=== PATIENT | male | born 1955 | race Caucasian/White ===

== ENCOUNTER 2023-01-10 12:41 | Inpatient (IN) ==
[2023-01-10] MEDS ORDERED: Lactated Ringers 1000 ml BAG 1,000 ML IV ONE ×4 (13:10→16:57)
[2023-01-10 13:39] LABS: ABS Basophils 0.1 10^3/ul (0-0.2); ABS Eosinophils 0.1 10^3/ul (0-0.6); ABS Lymphocytes 1.4 10^3/ul (1.0-4.8); ABS Monocytes 0.9 10^3/ul (0-0.8); ABS Neutrophils 12.1 10^3/ul (1.5-7.7); Eosinophil % 0.8 %; Hematocrit 36 % (42-52); Hemoglobin 11.5 g/dL (14.0-18.0); Lymphocyte % 9.6 %; Mean Corpuscular HGB Conc 32 g/dL (31-36); Mean Corpuscular Hemoglobin 29 pg (27-31); Mean Corpuscular Volume 89 fL (80-94); Mean Platelet Volume 6.7 fL (7.4-10.4); Platelet Count 233 10^3/uL (150-450); Red Blood Count 4.03 10^6 /uL (4.18-5.48); Red Cell Distribution Width 16 % (10-15); White Blood Count 14.5 10^3/uL (3.5-10.8)
[2023-01-10 13:45] LABS: INR 1.5 (0.88-1.18)
[2023-01-10] MEDS ORDERED: Piperacillin/Tazobac ADVAN 3.375 GM in NS 0.9% 100 ml BAG 100 ML IV ONE (13:53)
[2023-01-10] MEDS ORDERED: Vancomycin 1,250 MG in NS 0.9% 250 ml 250 ML IVPB ONE (14:00)
[2023-01-10] MEDS ORDERED: Iodixanol (CONTRAST) 320 MG/ML 100 ML SDV IV ONE (14:13)
[2023-01-10 14:33] LABS: Albumin 3.6 g/dL (3.2-5.2); Albumin/Globulin Ratio 1.7 (1-3); Calcium 8.8 mg/dL (8.6-10.3); Creatinine, Serum 1.2 mg/dL (0.67-1.17); Globulin 2.1 g/dL (2-4); Total Bilirubin 0.9 mg/dL (0.2-1.0); Total Protein 5.7 g/dL (6.4-8.9); eGFR CKD-EPI 67.1 (>60)
[2023-01-10 14:41] LABS: Potassium 5.3 mmol/L (3.5-5.0)
[2023-01-10] MEDS ORDERED: Norepinephrine 16MCG/ML BAGD5W 4,000 MCG/250 ML BAG IV SCH (15:00)
[2023-01-10 15:06] LABS: High Sensitivity Troponin 1 Hr 11 pg/mL (<20)
[2023-01-10 15:40] LABS: Urine Appearance Clear; Urine Bilirubin Negative (Negative); Urine Blood Negative (Negative); Urine Color Yellow; Urine Glucose Negative (Negative); Urine Ketones Negative (Negative); Urine Nitrite Negative (Negative); Urine Protein Negative (Negative); Urine Specific Gravity 1.014 (1.002-1.030); Urine Urobilinogen Negative (Negative)
[2023-01-10] MEDS ORDERED: cefTRIAXone 1 gm/50 mL D5W 1 GM/50 ML BAG IV SCH (17:00)
[2023-01-10 17:14] LABS: Magnesium 1.8 mg/dL (1.9-2.7)
[2023-01-10] MEDS ORDERED: Azithromycin 500 mg/250 ml NS 500 MG/250 ML BAG IVPB SCH (18:00)
[2023-01-10] MEDS ORDERED: Zosyn per Pharmacy NOTE FOLLOW UP SCH (18:00)
[2023-01-10] MEDS ORDERED: Albuterol HFA INHALER 8 gm MDI INH PRN (18:02)
[2023-01-10] MEDS ORDERED: Saline NASAL SPRAY 0.65% BTL BOTH NARES PRN (18:02)
[2023-01-10] MEDS ORDERED: Magnesium Sulfate 2 gm BAG 2 GM/50 ML BAG IVPB ONE (18:06)
[2023-01-10] MEDS: Enoxaparin 40 MG/0.4 ML SYR SUBCUT SCH (18:28)
[2023-01-10] MEDS ORDERED: Dextrose 50% Syringe 50 ml 25 GM/50 ML SYRINGE IV PUSH PRN (18:42)
[2023-01-10] MEDS ORDERED: ZOSYN 3.375 GM Q8H per EXTENDED INFUSION IV SCH (20:00)
[2023-01-10] MEDS ORDERED: Morphine ER 30 mg TAB ** extended release PO PRN (20:49)
[2023-01-10] MEDS: Polyethylene Glycol 3350 17 GM PACKET PO SCH (21:05)
[2023-01-10] MEDS: ZOSYN 3.375 GM Q8H per EXTENDED INFUSION IV SCH (21:15)
[2023-01-10] MEDS: Senna TAB 8.6 mg TAB PO SCH (21:53)
[2023-01-10 23:28] LABS: Calcium 8.5 mg/dL (8.6-10.3); Creatinine, Serum 0.95 mg/dL (0.67-1.17); Magnesium 2.2 mg/dL (1.9-2.7); Potassium 4.1 mmol/L (3.5-5.0); eGFR CKD-EPI 88.8 (>60)
[2023-01-11] MEDS: Morphine ER 30 mg TAB ** extended release PO SCH ×2 (04:03→14:51)
[2023-01-11] MEDS: ZOSYN 3.375 GM Q8H per EXTENDED INFUSION IV SCH ×2 (05:07→12:52)
[2023-01-11 06:35] LABS: ABS Eosinophils 0.2 10^3/ul (0-0.6); ABS Monocytes 0.6 10^3/ul (0-0.8); ABS Neutrophils 6.1 10^3/ul (1.5-7.7); Eosinophil % 2.1 %; Hematocrit 36 % (42-52); Hemoglobin 11.8 g/dL (14.0-18.0); Mean Corpuscular HGB Conc 33 g/dL (31-36); Mean Corpuscular Hemoglobin 29 pg (27-31); Mean Corpuscular Volume 89 fL (80-94); Mean Platelet Volume 6.6 fL (7.4-10.4); Platelet Count 170 10^3/uL (150-450); Red Blood Count 4.01 10^6 /uL (4.18-5.48); Red Cell Distribution Width 16 % (10-15)
[2023-01-11 07:08] LABS: Calcium 8.5 mg/dL (8.6-10.3); Creatinine, Serum 0.84 mg/dL (0.67-1.17); Potassium 4.3 mmol/L (3.5-5.0); eGFR CKD-EPI 96.8 (>60)
[2023-01-11] MEDS: Tiotropium Brom/Olodaterol MDI INH SCH (07:56)
[2023-01-11] MEDS: Senna TAB 8.6 mg TAB PO SCH ×2 (09:01→20:22)
[2023-01-11] MEDS: Polyethylene Glycol 3350 17 GM PACKET PO SCH ×2 (09:02→20:22)
[2023-01-11] MEDS: Enoxaparin 40 MG/0.4 ML SYR SUBCUT SCH (17:13)
[2023-01-12] MEDS: Morphine ER 30 mg TAB ** extended release PO SCH ×2 (02:49→15:02)
[2023-01-12] MEDS ORDERED: Morphine 2 MG/ML SYRINGE IV ONE (06:15)
[2023-01-12] MEDS: Tiotropium Brom/Olodaterol MDI INH SCH (07:49)
[2023-01-12 08:19] LABS: ABS Eosinophils 0.1 10^3/ul (0-0.6); ABS Lymphocytes 1.2 10^3/ul (1.0-4.8); ABS Monocytes 0.4 10^3/ul (0-0.8); ABS Neutrophils 4.4 10^3/ul (1.5-7.7); Eosinophil % 2.4 %; Hematocrit 35 % (42-52); Hemoglobin 12.2 g/dL (14.0-18.0); Mean Corpuscular HGB Conc 35 g/dL (31-36); Mean Corpuscular Hemoglobin 30 pg (27-31); Mean Corpuscular Volume 87 fL (80-94); Mean Platelet Volume 6.6 fL (7.4-10.4); Platelet Count 175 10^3/uL (150-450); Red Blood Count 4.05 10^6 /uL (4.18-5.48); Red Cell Distribution Width 16 % (10-15); White Blood Count 6.2 10^3/uL (3.5-10.8)
[2023-01-12] MEDS: Senna TAB 8.6 mg TAB PO SCH ×2 (10:15→23:12)
[2023-01-12 10:18] LABS: C Reactive Protein 129.42 mg/L (<8.01); Calcium 8.6 mg/dL (8.6-10.3); Creatinine, Serum 0.73 mg/dL (0.67-1.17)
[2023-01-12] MEDS: Polyethylene Glycol 3350 17 GM PACKET PO SCH ×2 (10:19→23:12)
[2023-01-12] MEDS ORDERED: Vancomycin per Pharmacy 1 EA NOTE FOLLOW UP SCH (11:00)
[2023-01-12] MEDS ORDERED: Vancomycin 1,250 MG in NS 0.9% 250 ml 250 ML IVPB ONE (12:00)
[2023-01-12] MEDS: Cefepime 2 GM in Dextrose 2 GM/50 ML BAG IV SCH ×2 (12:36→23:36)
[2023-01-12] MEDS: Enoxaparin 40 MG/0.4 ML SYR SUBCUT SCH (17:05)
[2023-01-12] MEDS: Vancomycin 1000 MG in NS 0.9% 250 ML IVPB SCH (21:41)
[2023-01-13] MEDS: Morphine ER 30 mg TAB ** extended release PO SCH (03:42)
[2023-01-13] MEDS: Vancomycin 1000 MG in NS 0.9% 250 ML IVPB SCH (05:40)
[2023-01-13 07:51] LABS: ABS Basophils 0.1 10^3/ul (0-0.2); ABS Eosinophils 0.3 10^3/ul (0-0.6); ABS Lymphocytes 1.3 10^3/ul (1.0-4.8); ABS Monocytes 0.4 10^3/ul (0-0.8); ABS Neutrophils 3.2 10^3/ul (1.5-7.7); Eosinophil % 4.9 %; Hematocrit 35 % (42-52); Hemoglobin 11.8 g/dL (14.0-18.0); Lymphocyte % 24.7 %; Mean Corpuscular HGB Conc 34 g/dL (31-36); Mean Corpuscular Hemoglobin 29 pg (27-31); Mean Corpuscular Volume 87 fL (80-94); Mean Platelet Volume 6.5 fL (7.4-10.4); Platelet Count 198 10^3/uL (150-450); Red Cell Distribution Width 16 % (10-15); White Blood Count 5.2 10^3/uL (3.5-10.8)
[2023-01-13] MEDS: Tiotropium Brom/Olodaterol MDI INH SCH (08:01)
[2023-01-13 08:32] LABS: Calcium 8.6 mg/dL (8.6-10.3); Creatinine, Serum 0.65 mg/dL (0.67-1.17); Potassium 4.2 mmol/L (3.5-5.0); eGFR CKD-EPI 104.6 (>60)
[2023-01-13] MEDS: Polyethylene Glycol 3350 17 GM PACKET PO SCH (08:53)
[2023-01-13] MEDS: Senna TAB 8.6 mg TAB PO SCH (08:58)
[2023-01-13 11:19] VITALS: BP 144/77
[2023-01-13] MEDS: Cefepime 2 GM in Dextrose 2 GM/50 ML BAG IV SCH (11:39)
[2023-01-13] MEDS ORDERED: Vancomycin Trough Check NOTE FOLLOW UP ONE (13:30)
[2023-01-13] MEDS ORDERED: Cefepime 2 GM in NS 0.9% 50 ML 50 ML IVPB SCH (23:00)
== END 2023-01-13 14:00 | DRG 871 ==
LOC: ED 12:41 → EDHOLD 16:53 → ICU 20:17 → MED 01-11 15:34
PROVIDERS: ADMIT Surgery Surgical Critical Care; ATTEND Surgery Surgical Critical Care